=== PATIENT | male | born 1955 | race Caucasian/White ===

== ENCOUNTER 2017-07-17 00:56 | Inpatient (IN) | payer MEDICARE, MEDICAID ==
[2017-07-17] VITALS (11 sets, daily range): BP systolic 77–128; BP diastolic 37–70
[~2017-07-17] VITALS: Ht 185.4 cm; Wt 110.8 kg
[~2017-07-17 00:56] MED LIST: ATOR20TA86 PO; GABA-531 PO; GLIP5 PO; HUMLIS7525 SQ; INS7030 SQ; METF500T4 PO; METO-558 PO; OMEP20 PO; OXYB5XL PO; PIOG45TA4 PO; SILO8CAP PO; VALS160T2 PO
[2017-07-17] MEDS ORDERED: INSU100V12 SQ (01:17)
[2017-07-17] MEDS ORDERED: EMPA10TA PO (01:17)
[2017-07-17 01:28] LABS: GLUCOSE,POINT OF CARE 147 MG/DL (70-110)
[2017-07-17 01:45] LABS: BASOPHILS # (AUTO) 0.05 K/uL (0.00-0.20); BASOPHILS % (AUTO) 0.4 % (0.0-2.0); EOSINOPHILS % (AUTO) 0.74 % (1.0-6.0); HEMATOCRIT 51.7 % (41-53); HEMOGLOBIN 17.2 g/dL (13.5-17.5); LYMPHOCYTES % (AUTO) 21.4 % (22.0-44.0); MEAN CORPUSCULAR HEMOGLOBIN 30.3 pg (26.0-34.0); MEAN CORPUSCULAR HGB CONC 33.3 G/dL (31.0-37.0); MEAN CORPUSCULAR VOLUME 91 fL (80-100); MONOCYTES # (AUTO) 1.2 K/uL (0.1-1.0); MONOCYTES % (AUTO) 8.3 % (2.0-9.0); NEUTROPHILS # (AUTO) 9.8 K/uL (1.8-7.7); NEUTROPHILS % (AUTO) 69.3 % (40.0-70.0); PLATELET COUNT (AUTO) 200 K/uL (150-450); RED BLOOD CELL COUNT(AUTO) 5.67 MIL/uL (4.50-5.90)
[2017-07-17 01:56] LABS: CALCIUM, TOTAL 9.4 mg/dL (8.8-10.5); CREATININE 1.42 mg/dL (0.60-1.30)
[2017-07-17 02:02] LABS: ALBUMIN 4.5 g/dL (3.4-5.0); BILIRUBIN,TOTAL 0.7 mg/dL (0.1-1.0); TOTAL PROTEIN, SERUM 7.9 g/dL (6.4-8.2)
[2017-07-17] MEDS ORDERED: ASPIRIN 325 MG TABLET PO ONE (03:15)
[2017-07-17] MEDS ORDERED: NITROGLYCERIN 0.4 MG SUBLINGUAL TABLET #25 SL ONE (03:15)
[2017-07-17] MEDS ORDERED: NITROGLYCERIN 2% (1 GM=INCH) PACKET TP ONE (03:15)
[2017-07-17] MEDS ORDERED: HYDROmorphone 2 MG/ML SYRINGE IVP ONE ×2 (04:15→05:30)
[2017-07-17] MEDS ORDERED: ONDANSETRON HCL 4 MG/2 ML VIAL IVP ONE (04:15)
[2017-07-17] MEDS ORDERED: 0.9% SODIUM CHLORIDE 10 ML SYRINGE IVP PRN (05:30)
[2017-07-17] MEDS ORDERED: ONDANSETRON HCL 4 MG/2 ML VIAL IVP PRN (05:30)
[2017-07-17] MEDS ORDERED: ACETAMINOPHEN 325 MG TABLET PO PRN (05:30)
[2017-07-17] MEDS ORDERED: LORazepam 2 MG/ML VIAL IVP ONE ×2 (06:00→16:15)
[2017-07-17] MEDS ORDERED: GABA-531 PO (08:52)
[2017-07-17] MEDS ORDERED: OXYC10TA89 PO (08:52)
[2017-07-17] MEDS ORDERED: VITAD1000 PO (08:52)
[2017-07-17] MEDS ORDERED: PERCT10 PO (08:52)
[2017-07-17] MEDS ORDERED: FLUT16H NASAL (08:52)
[2017-07-17] MEDS ORDERED: FLUO-191 PO (08:52)
[2017-07-17] MEDS ORDERED: SITA100 PO (08:52)
[2017-07-17] MEDS ORDERED: DEXTROSE 50%-WATER 25 GM/50 ML SYRINGE IVP PRN (10:00)
[2017-07-17] MEDS: ATORVASTATIN CALCIUM 20 MG TABLET PO SCH (10:38)
[2017-07-17] MEDS: CHOLECALCIFEROL (VIT D3) 1,000 UNITS TABLET PO SCH (10:38)
[2017-07-17] MEDS: FLUTICASONE PROPIONATE 50 MCG/SPRAY 16 GM NASAL SPRAY NASAL SCH (10:38)
[2017-07-17] MEDS: OMEPRAZOLE 20 MG CAPSULE PO SCH (10:38)
[2017-07-17] MEDS: GABAPENTIN 300 MG CAPSULE PO SCH ×3 (10:39→21:00)
[2017-07-17] MEDS: OxyCODONE HCL 10 MG ER TABLET PO SCH ×2 (10:44→21:00)
[2017-07-17] MEDS: FLUoxetine HCL 20 MG CAPSULE PO SCH (10:44)
[2017-07-17] MEDS: METOPROLOL SUCCINATE 50 MG ER TABLET PO SCH (10:44)
[2017-07-17] MEDS: VALSARTAN 160 MG TABLET PO SCH (12:07)
[2017-07-17] MEDS: SitaGLIPtin PHOSPHATE 100 MG TABLET PO SCH (12:07)
[2017-07-17] MEDS: INSULIN ASPART 100 UNITS/ML SQ PRN ×3 (12:15→21:42)
[2017-07-17] MEDS ORDERED: SODIUM CHLORIDE 0.9% 1,000 ML IV ONE (13:08)
[2017-07-17] MEDS ORDERED: IOVERSOL 350 MG/ML 150 ML VIAL ONE (13:08)
[2017-07-17] MEDS: MetFORMIN HCL 500 MG TABLET PO SCH (18:35)
[2017-07-17] MEDS ORDERED: SODIUM CHLORIDE 0.9% 250 ML IV ONE (21:00)
[2017-07-17] MEDS: INSULIN DETEMIR 100 UNITS/ML SQ SCH (21:41)
[2017-07-18] VITALS (11 sets, daily range): BP systolic 91–124; BP diastolic 52–74
[2017-07-18] MEDS ORDERED: ACETAMINOPHEN 325 MG TABLET PO PRN (02:00)
[2017-07-18] MEDS: INSULIN ASPART 100 UNITS/ML SQ PRN ×4 (06:27→20:18)
[2017-07-18 07:09] LABS: B-TYPE NATRIURETIC PEPTIDE 28 pg/mL (0-100)
[2017-07-18 07:30] LABS: HEMOGLOBIN A1C 7.9 % (4.5-6.2)
[2017-07-18 07:32] LABS: ANION GAP 13 mmol/L (8-16); CARBON DIOXIDE 23 mmol/L (22-29); CHLORIDE 99 mmol/L (98-107); CREATINE KINASE, TOTAL 42 U/L (39-308); CREATININE 1.43 mg/dL (0.60-1.30); GLOMERULAR FILTR. RATE CALC 50 mL/min (>60); GLUCOSE,RANDOM 286 mg/dL (70-110); POTASSIUM 4.4 mmol/L (3.5-5.1); SODIUM SERUM 135 mmol/L (136-145); UREA NITROGEN, BLOOD 42 mg/dL (7-18)
[2017-07-18 07:49] LABS: GLUCOMETER DEV NAME(LOC) 5S 2N; GLUCOSE,POINT OF CARE 280 MG/DL (70-110)
[2017-07-18 07:49] LABS: GLUCOMETER DEV NAME(LOC) 5S 2N; GLUCOSE,POINT OF CARE 448 MG/DL (70-110)
[2017-07-18 07:49] LABS: GLUCOMETER DEV NAME(LOC) 5S 2N; GLUCOSE,POINT OF CARE 267 MG/DL (70-110)
[2017-07-18] MEDS: MetFORMIN HCL 500 MG TABLET PO SCH (07:59)
[2017-07-18] MEDS: CHOLECALCIFEROL (VIT D3) 1,000 UNITS TABLET PO SCH (07:59)
[2017-07-18] MEDS: GABAPENTIN 300 MG CAPSULE PO SCH ×3 (07:59→20:15)
[2017-07-18] MEDS: ATORVASTATIN CALCIUM 20 MG TABLET PO SCH (08:00)
[2017-07-18] MEDS: OMEPRAZOLE 20 MG CAPSULE PO SCH (08:00)
[2017-07-18] MEDS: TAMSULOSIN HCL 0.4 MG CAPSULE PO SCH (08:00)
[2017-07-18] MEDS: FLUoxetine HCL 20 MG CAPSULE PO SCH (08:00)
[2017-07-18] MEDS: FLUTICASONE PROPIONATE 50 MCG/SPRAY 16 GM NASAL SPRAY NASAL SCH (08:01)
[2017-07-18] MEDS: OxyCODONE HCL/ACETAMINOPHEN 10-325 MG TABLET PO PRN ×2 (08:02→20:14)
[2017-07-18] MEDS: VALSARTAN 160 MG TABLET PO SCH (09:00)
[2017-07-18] MEDS: METOPROLOL SUCCINATE 50 MG ER TABLET PO SCH (09:00)
[2017-07-18] MEDS: SitaGLIPtin PHOSPHATE 100 MG TABLET PO SCH (09:43)
[2017-07-18] MEDS ORDERED: INFLUENZA VIRUS VACCINE QVS 2017-18 (3YR+)/PF 60 MCG/0.5 ML SYRINGE IM ONE (12:30)
[2017-07-18] MEDS ORDERED: PNEUMOCOCCAL VACCINE POLYVALENT 0.5 ML VIAL [PPSV23] IM ONE (12:30)
[2017-07-18] MEDS: OxyCODONE HCL 10 MG ER TABLET PO SCH ×2 (13:18→22:30)
[2017-07-18] MEDS ORDERED: IOVERSOL 350 MG/ML 150 ML VIAL ONE (15:50)
[2017-07-18] MEDS ORDERED: LORazepam 2 MG/ML VIAL IVP ONE (16:00)
[2017-07-18 19:49] LABS: GLUCOMETER DEV NAME(LOC) 5S 1L; GLUCOSE,POINT OF CARE 274 MG/DL (70-110)
[2017-07-18] MEDS: INSULIN DETEMIR 100 UNITS/ML SQ SCH (20:17)
[2017-07-19] VITALS (9 sets, daily range): BP systolic 111–129; BP diastolic 58–80
[2017-07-19] MEDS: OxyCODONE HCL/ACETAMINOPHEN 10-325 MG TABLET PO PRN ×5 (00:05→22:35)
[2017-07-19 07:56] LABS: GLUCOMETER DEV NAME(LOC) 5S 2N; GLUCOSE,POINT OF CARE 297 MG/DL (70-110)
[2017-07-19 07:57] LABS: GLUCOMETER DEV NAME(LOC) 5S 2N; GLUCOSE,POINT OF CARE 260 MG/DL (70-110)
[2017-07-19 08:06] LABS: GLUCOMETER DEV NAME(LOC) 5S 2N; GLUCOSE,POINT OF CARE 323 MG/DL (70-110)
[2017-07-19 08:07] LABS: GLUCOMETER DEV NAME(LOC) 5S 2N; GLUCOSE,POINT OF CARE 261 MG/DL (70-110)
[2017-07-19 08:20] LABS: BASOPHILS # (AUTO) 0.06 K/uL (0.00-0.20); BASOPHILS % (AUTO) 0.7 % (0.0-2.0); EOSINOPHILS # (AUTO) 0.18 K/uL (0.00-0.70); EOSINOPHILS % (AUTO) 2.13 % (1.0-6.0); HEMATOCRIT 46.9 % (41-53); HEMOGLOBIN 16.1 g/dL (13.5-17.5); LYMPHOCYTES # (AUTO) 2.6 K/uL (1.0-4.8); LYMPHOCYTES % (AUTO) 31.2 % (22.0-44.0); MEAN CORPUSCULAR HEMOGLOBIN 30.7 pg (26.0-34.0); MEAN CORPUSCULAR HGB CONC 34.3 G/dL (31.0-37.0); MEAN CORPUSCULAR VOLUME 89 fL (80-100); MONOCYTES # (AUTO) 0.8 K/uL (0.1-1.0); MONOCYTES % (AUTO) 9.4 % (2.0-9.0); NEUTROPHILS # (AUTO) 4.8 K/uL (1.8-7.7); NEUTROPHILS % (AUTO) 56.7 % (40.0-70.0); PLATELET COUNT (AUTO) 144 K/uL (150-450); RED BLOOD CELL COUNT(AUTO) 5.24 MIL/uL (4.50-5.90); RED CELL DISTRIBUTION WIDTH 12.8 % (11.5-14.5)
[2017-07-19 08:46] LABS: PROTHROMBIN TIME 10.4 SEC (9.4-11.6)
[2017-07-19 08:48] LABS: ANION GAP 7 mmol/L (8-16); CALCIUM, TOTAL 9.3 mg/dL (8.8-10.5); CARBON DIOXIDE 28 mmol/L (22-29); CHLORIDE 102 mmol/L (98-107); CREATININE 0.91 mg/dL (0.60-1.30); GLOMERULAR FILTR. RATE CALC > 60 mL/min (>60); GLUCOSE,RANDOM 234 mg/dL (70-110); POTASSIUM 4.4 mmol/L (3.5-5.1); SODIUM SERUM 137 mmol/L (136-145); UREA NITROGEN, BLOOD 32 mg/dL (7-18)
[2017-07-19] MEDS: FLUTICASONE PROPIONATE 50 MCG/SPRAY 16 GM NASAL SPRAY NASAL SCH (08:59)
[2017-07-19] MEDS: METOPROLOL SUCCINATE 50 MG ER TABLET PO SCH (09:00)
[2017-07-19] MEDS ORDERED: SESTAMIBI TC99M/UD ISOTOPE 1 EA INJ INJ ONE ×2 (09:50→10:50)
[2017-07-19] MEDS: VALSARTAN 160 MG TABLET PO SCH (10:24)
[2017-07-19] MEDS: CHOLECALCIFEROL (VIT D3) 1,000 UNITS TABLET PO SCH (10:24)
[2017-07-19] MEDS: SitaGLIPtin PHOSPHATE 100 MG TABLET PO SCH (10:24)
[2017-07-19] MEDS: OMEPRAZOLE 20 MG CAPSULE PO SCH (10:24)
[2017-07-19] MEDS: ATORVASTATIN CALCIUM 20 MG TABLET PO SCH (10:24)
[2017-07-19] MEDS: TAMSULOSIN HCL 0.4 MG CAPSULE PO SCH (10:25)
[2017-07-19] MEDS: GABAPENTIN 300 MG CAPSULE PO SCH ×3 (10:27→22:34)
[2017-07-19] MEDS ORDERED: REGADENOSON 0.4 MG/5 ML PF SYRINGE IVP ONE ×2 (10:47→16:29)
[2017-07-19] MEDS ORDERED: DEXTROSE 50%-WATER 25 GM/50 ML SYRINGE IVP PRN (12:00)
[2017-07-19] MEDS: OxyCODONE HCL 10 MG ER TABLET PO SCH ×2 (12:37→23:59)
[2017-07-19] MEDS: FLUoxetine HCL 20 MG CAPSULE PO SCH (12:37)
[2017-07-19] MEDS: INSULIN ASPART 100 UNITS/ML SQ PRN ×2 (12:42→17:55)
[2017-07-19] MEDS: INSULIN DETEMIR 100 UNITS/ML SQ SCH (16:58)
[2017-07-19] MEDS ORDERED: INSULIN DETEMIR 100 UNITS/ML SQ SCH (17:30)
[2017-07-20 00:23] VITALS: BP 123/71
[2017-07-20 05:44] VITALS: BP 128/69
[2017-07-20 06:18] LABS: BASOPHILS % (AUTO) 0.6 % (0.0-2.0); EOSINOPHILS % (AUTO) 2.4 % (1.0-6.0); HEMATOCRIT 45.4 % (41-53); HEMOGLOBIN 15.5 g/dL (13.5-17.5); LYMPHOCYTES # (AUTO) 2.9 K/uL (1.0-4.8); LYMPHOCYTES % (AUTO) 34.4 % (22.0-44.0); MEAN CORPUSCULAR HEMOGLOBIN 30.9 pg (26.0-34.0); MEAN CORPUSCULAR HGB CONC 34.1 G/dL (31.0-37.0); MEAN CORPUSCULAR VOLUME 91 fL (80-100); MONOCYTES # (AUTO) 0.7 K/uL (0.1-1.0); MONOCYTES % (AUTO) 8.6 % (2.0-9.0); NEUTROPHILS # (AUTO) 4.5 K/uL (1.8-7.7); PLATELET COUNT (AUTO) 153 K/uL (150-450); RED BLOOD CELL COUNT(AUTO) 5.01 MIL/uL (4.50-5.90); RED CELL DISTRIBUTION WIDTH 12.6 % (11.5-14.5)
[2017-07-20 06:27] LABS: PROTHROMBIN TIME 10.3 SEC (9.4-11.6)
[2017-07-20] MEDS: INSULIN DETEMIR 100 UNITS/ML SQ SCH ×2 (06:30→16:48)
[2017-07-20 06:31] LABS: ANION GAP 7 mmol/L (8-16); CALCIUM, TOTAL 8.9 mg/dL (8.8-10.5); CARBON DIOXIDE 27 mmol/L (22-29); CHLORIDE 101 mmol/L (98-107); CREATININE 0.91 mg/dL (0.60-1.30); GLOMERULAR FILTR. RATE CALC > 60 mL/min (>60); GLUCOSE,RANDOM 231 mg/dL (70-110); POTASSIUM 4.5 mmol/L (3.5-5.1); SODIUM SERUM 135 mmol/L (136-145); UREA NITROGEN, BLOOD 29 mg/dL (7-18)
[2017-07-20 07:40] VITALS: BP 121/72
[2017-07-20] MEDS ORDERED: DiphenhydrAMINE HCL 50 MG/ML VIAL IVP ONE (08:00)
[2017-07-20] MEDS: GABAPENTIN 300 MG CAPSULE PO SCH ×3 (09:00→20:08)
[2017-07-20] MEDS: OxyCODONE HCL 10 MG ER TABLET PO SCH ×2 (09:00→21:00)
[2017-07-20] MEDS: OxyCODONE HCL/ACETAMINOPHEN 10-325 MG TABLET PO PRN ×3 (10:47→20:08)
[2017-07-20] MEDS: FLUTICASONE PROPIONATE 50 MCG/SPRAY 16 GM NASAL SPRAY NASAL SCH (10:47)
[2017-07-20 12:17] VITALS: BP 113/63
[2017-07-20] MEDS ORDERED: FentaNYL CITRATE-PF 100 MCG/2 ML VIAL ONE (12:33)
[2017-07-20] MEDS ORDERED: HEPARIN SODIUM,PORCINE 1,000 UNITS/ML 10 ML VIAL ONE (12:34)
[2017-07-20] MEDS ORDERED: VERAPAMIL HCL 2.5 MG/ML 2 ML VIAL ONE (12:34)
[2017-07-20] MEDS ORDERED: MIDAZOLAM HCL 2 MG/2 ML VIAL ONE (12:34)
[2017-07-20] MEDS ORDERED: SODIUM BICARBONATE 50 MEQ/50 ML VIAL ONE (12:35)
[2017-07-20] MEDS ORDERED: LIDOCAINE HCL/PF 1% 30 ML VIAL ONE (12:35)
[2017-07-20] MEDS ORDERED: NITROGLYCERIN 50 MG/D5% WATER 0 ML ONE (12:35)
[2017-07-20] MEDS ORDERED: HEPARIN SODIUM 1000 UNITS/NS 500 ML ONE (12:36)
[2017-07-20] MEDS ORDERED: IOHEXOL 300 MG/ML 150 ML VIAL ONE (12:36)
[2017-07-20] MEDS ORDERED: IOHEXOL 300 MG/ML 100 ML VIAL ONE (12:36)
[2017-07-20] MEDS: SitaGLIPtin PHOSPHATE 100 MG TABLET PO SCH (13:45)
[2017-07-20] MEDS: TAMSULOSIN HCL 0.4 MG CAPSULE PO SCH (13:45)
[2017-07-20] MEDS: CHOLECALCIFEROL (VIT D3) 1,000 UNITS TABLET PO SCH (13:46)
[2017-07-20] MEDS: METOPROLOL SUCCINATE 50 MG ER TABLET PO SCH (13:46)
[2017-07-20] MEDS: VALSARTAN 160 MG TABLET PO SCH (13:46)
[2017-07-20] MEDS: FLUoxetine HCL 20 MG CAPSULE PO SCH (13:46)
[2017-07-20] MEDS: ATORVASTATIN CALCIUM 20 MG TABLET PO SCH (13:46)
[2017-07-20] MEDS: OMEPRAZOLE 20 MG CAPSULE PO SCH (13:46)
[2017-07-20] MEDS: INSULIN ASPART 100 UNITS/ML SQ PRN ×3 (13:52→21:49)
[2017-07-20] MEDS ORDERED: NITROGLYCERIN 0.4 MG SUBLINGUAL TABLET #25 SL PRN (14:00)
[2017-07-20 15:18] VITALS: BP 116/76
[2017-07-20] MEDS: MetFORMIN HCL 500 MG TABLET PO SCH (16:48)
[2017-07-20] MEDS ORDERED: LIDOCAINE HCL 5% TRANSDERMAL PATCH TD SCH (18:30)
[2017-07-20] MEDS: CYCLOBENZAPRINE HCL 10 MG TABLET PO PRN (18:51)
[2017-07-20 20:09] VITALS: BP 103/58
[2017-07-20] MEDS: LIDOCAINE HCL 5% TRANSDERMAL PATCH TD SCH ×3 (20:09→20:10)
[2017-07-21] VITALS (15 sets, daily range): BP systolic 83–131; BP diastolic 33–79
[2017-07-21] MEDS ORDERED: ASPIRIN 81 MG CHEWABLE TABLET PO SCH (05:00)
[2017-07-21] MEDS: INSULIN DETEMIR 100 UNITS/ML SQ SCH ×2 (05:59→17:51)
[2017-07-21 06:10] LABS: BASOPHILS % (AUTO) 0.5 % (0.0-2.0); EOSINOPHILS % (AUTO) 1.8 % (1.0-6.0); HEMATOCRIT 44.7 % (41-53); HEMOGLOBIN 15.2 g/dL (13.5-17.5); LYMPHOCYTES # (AUTO) 2.8 K/uL (1.0-4.8); LYMPHOCYTES % (AUTO) 31.3 % (22.0-44.0); MEAN CORPUSCULAR HEMOGLOBIN 30.7 pg (26.0-34.0); MEAN CORPUSCULAR HGB CONC 33.9 G/dL (31.0-37.0); MEAN CORPUSCULAR VOLUME 91 fL (80-100); MONOCYTES # (AUTO) 0.9 K/uL (0.1-1.0); MONOCYTES % (AUTO) 9.6 % (2.0-9.0); NEUTROPHILS % (AUTO) 56.8 % (40.0-70.0); PLATELET COUNT (AUTO) 150 K/uL (150-450); RED BLOOD CELL COUNT(AUTO) 4.93 MIL/uL (4.50-5.90); RED CELL DISTRIBUTION WIDTH 12.9 % (11.5-14.5)
[2017-07-21 06:20] LABS: PROTHROMBIN TIME 10.5 SEC (9.4-11.6)
[2017-07-21 06:30] LABS: ANION GAP 5 mmol/L (8-16); CALCIUM, TOTAL 8.8 mg/dL (8.8-10.5); CARBON DIOXIDE 29 mmol/L (22-29); CHLORIDE 101 mmol/L (98-107); CREATINE KINASE, TOTAL 29 U/L (39-308); CREATININE 1.04 mg/dL (0.60-1.30); GLOMERULAR FILTR. RATE CALC > 60 mL/min (>60); GLUCOSE,RANDOM 257 mg/dL (70-110); POTASSIUM 4.2 mmol/L (3.5-5.1); SODIUM SERUM 135 mmol/L (136-145); UREA NITROGEN, BLOOD 31 mg/dL (7-18)
[2017-07-21] MEDS ORDERED: LORazepam 2 MG/ML VIAL IVP ONE (07:30)
[2017-07-21] MEDS: FLUTICASONE PROPIONATE 50 MCG/SPRAY 16 GM NASAL SPRAY NASAL SCH (07:49)
[2017-07-21] MEDS: MetFORMIN HCL 500 MG TABLET PO SCH (08:00)
[2017-07-21] MEDS ORDERED: HEPARIN SODIUM 1000 UNITS/NS 1,000 ML ONE (08:08)
[2017-07-21] MEDS ORDERED: IOHEXOL 300 MG/ML 150 ML VIAL ONE (08:08)
[2017-07-21] MEDS ORDERED: SODIUM BICARBONATE 50 MEQ/50 ML VIAL ONE (08:08)
[2017-07-21] MEDS ORDERED: LIDOCAINE HCL/PF 1% 30 ML VIAL ONE (08:08)
[2017-07-21] MEDS ORDERED: FentaNYL CITRATE-PF 100 MCG/2 ML VIAL ONE (08:42)
[2017-07-21] MEDS ORDERED: VERAPAMIL HCL 2.5 MG/ML 2 ML VIAL ONE (08:42)
[2017-07-21] MEDS ORDERED: NITROGLYCERIN 50 MG/D5% WATER 250 ML ONE (08:42)
[2017-07-21] MEDS ORDERED: MIDAZOLAM HCL 2 MG/2 ML VIAL ONE ×2 (08:42→09:48)
[2017-07-21] MEDS: METOPROLOL SUCCINATE 50 MG ER TABLET PO SCH (09:00)
[2017-07-21] MEDS ORDERED: INSULIN DETEMIR 100 UNITS/ML SQ SCH (09:00)
[2017-07-21] MEDS: OxyCODONE HCL 10 MG ER TABLET PO SCH ×2 (09:00→21:30)
[2017-07-21] MEDS: VALSARTAN 160 MG TABLET PO SCH (09:00)
[2017-07-21] MEDS: GABAPENTIN 300 MG CAPSULE PO SCH ×3 (09:00→21:18)
[2017-07-21] MEDS: OMEPRAZOLE 20 MG CAPSULE PO SCH (09:00)
[2017-07-21] MEDS ORDERED: HEPARIN SODIUM,PORCINE 1,000 UNITS/ML 10 ML VIAL ONE (09:05)
[2017-07-21] MEDS ORDERED: SODIUM CHLORIDE 0.9% 500 ML IV ONE (09:20)
[2017-07-21] MEDS ORDERED: HEPARIN SODIUM 1000 UNITS/NS 1,000 ML IARTER ONE (09:20)
[2017-07-21] MEDS ORDERED: IOHEXOL 300 MG/ML 150 ML VIAL IARTER ONE (09:30)
[2017-07-21] MEDS ORDERED: HEPARIN SODIUM,PORCINE 5,000 UNITS/ML VIAL IVP ONE ×2 (09:30→10:15)
[2017-07-21] MEDS ORDERED: NITROGLYCERIN/D5W 50 MG/250 ML IV BOTTLE IARTER ONE (09:30)
[2017-07-21] MEDS ORDERED: MIDAZOLAM HCL 2 MG/2 ML VIAL IVP ONE ×3 (09:30→10:00)
[2017-07-21] MEDS ORDERED: VERAPAMIL HCL 2.5 MG/ML 2 ML VIAL IARTER ONE (09:30)
[2017-07-21] MEDS ORDERED: LIDOCAINE 1% 30 ML/SOD BICARB 8.4% 4 ML SQ ONE (09:30)
[2017-07-21] MEDS ORDERED: FentaNYL CITRATE-PF 100 MCG/2 ML VIAL IVP ONE ×3 (09:30→10:00)
[2017-07-21] MEDS ORDERED: IOHEXOL 300 MG/ML 50 ML VIAL ONE (09:33)
[2017-07-21] MEDS ORDERED: HEPARIN SODIUM 1000 UNITS/NS 500 ML IARTER ONE (09:34)
[2017-07-21] MEDS ORDERED: HEPARIN SODIUM 1000 UNITS/NS 500 ML ONE (09:41)
[2017-07-21] MEDS ORDERED: IOHEXOL 300 MG/ML 50 ML VIAL IARTER ONE (09:45)
[2017-07-21] MEDS ORDERED: IOHEXOL 300 MG/ML 100 ML VIAL ONE (10:08)
[2017-07-21] MEDS ORDERED: IOHEXOL 300 MG/ML 100 ML VIAL IARTER ONE (10:30)
[2017-07-21] MEDS ORDERED: TICAGRELOR 90 MG TABLET ONE (10:34)
[2017-07-21] MEDS ORDERED: ASPIRIN 81 MG CHEWABLE TABLET ONE (10:44)
[2017-07-21] MEDS ORDERED: TICAGRELOR 90 MG TABLET PO ONE (10:45)
[2017-07-21] MEDS ORDERED: ASPIRIN 81 MG CHEWABLE TABLET PO ONE (10:45)
[2017-07-21] MEDS: -LIDODERM PATCH NOTE- MISC SCH (10:51)
[2017-07-21 11:43] LABS: GLUCOSE,POINT OF CARE 289 MG/DL (70-110)
[2017-07-21] MEDS: SODIUM CHLORIDE 0.9% 1,000 ML IV SCH ×2 (11:52→18:55)
[2017-07-21] MEDS: OxyCODONE HCL/ACETAMINOPHEN 10-325 MG TABLET PO PRN (11:52)
[2017-07-21] MEDS: CHOLECALCIFEROL (VIT D3) 1,000 UNITS TABLET PO SCH (11:52)
[2017-07-21] MEDS: FLUoxetine HCL 20 MG CAPSULE PO SCH (11:53)
[2017-07-21] MEDS: TAMSULOSIN HCL 0.4 MG CAPSULE PO SCH (11:53)
[2017-07-21] MEDS: SitaGLIPtin PHOSPHATE 100 MG TABLET PO SCH (11:54)
[2017-07-21] MEDS: INSULIN ASPART 100 UNITS/ML SQ PRN ×3 (12:12→21:21)
[2017-07-21] MEDS: CYCLOBENZAPRINE HCL 10 MG TABLET PO PRN (13:02)
[2017-07-21] MEDS: ATORVASTATIN CALCIUM 40 MG TABLET PO SCH (13:14)
[2017-07-21 18:08] LABS: GLUCOSE,POINT OF CARE 350 MG/DL (70-110)
[2017-07-21 19:57] LABS: GLUCOMETER DEV NAME(LOC) 5S 1L; GLUCOSE,POINT OF CARE 310 MG/DL (70-110)
[2017-07-21 19:57] LABS: GLUCOMETER DEV NAME(LOC) 5S 2N; GLUCOSE,POINT OF CARE 423 MG/DL (70-110)
[2017-07-21 19:58] LABS: GLUCOMETER DEV NAME(LOC) 5S 2N; GLUCOSE,POINT OF CARE 267 MG/DL (70-110)
[2017-07-21 19:58] LABS: GLUCOMETER DEV NAME(LOC) 5S 2N; GLUCOSE,POINT OF CARE 232 MG/DL (70-110)
[2017-07-21 19:58] LABS: GLUCOMETER DEV NAME(LOC) 5S 1L; GLUCOSE,POINT OF CARE 264 MG/DL (70-110)
[2017-07-21 19:58] LABS: GLUCOMETER DEV NAME(LOC) 5S 2N; GLUCOSE,POINT OF CARE 293 MG/DL (70-110)
[2017-07-21 19:58] LABS: GLUCOMETER DEV NAME(LOC) 5S 2N; GLUCOSE,POINT OF CARE 325 MG/DL (70-110)
[2017-07-21] MEDS: LIDOCAINE HCL 5% TRANSDERMAL PATCH TD SCH ×3 (21:18→21:20)
[2017-07-21] MEDS: TICAGRELOR 90 MG TABLET PO SCH (21:30)
[2017-07-22] VITALS: BP 109/69
[2017-07-22 04:00] VITALS: BP 113/68
[2017-07-22] MEDS: SODIUM CHLORIDE 0.9% 1,000 ML IV SCH ×4 (04:06→22:24)
[2017-07-22] MEDS: CYCLOBENZAPRINE HCL 10 MG TABLET PO PRN ×2 (05:40→15:12)
[2017-07-22] MEDS: INSULIN ASPART 100 UNITS/ML SQ PRN ×4 (05:48→20:40)
[2017-07-22] MEDS: INSULIN DETEMIR 100 UNITS/ML SQ SCH ×2 (05:49→17:36)
[2017-07-22 06:37] LABS: GLUCOSE,POINT OF CARE 230 MG/DL (70-110)
[2017-07-22 06:37] LABS: GLUCOSE,POINT OF CARE 313 MG/DL (70-110)
[2017-07-22] MEDS: OxyCODONE HCL 10 MG ER TABLET PO SCH ×2 (07:56→20:32)
[2017-07-22] MEDS: TAMSULOSIN HCL 0.4 MG CAPSULE PO SCH (07:57)
[2017-07-22] MEDS: CHOLECALCIFEROL (VIT D3) 1,000 UNITS TABLET PO SCH (07:57)
[2017-07-22] MEDS: GABAPENTIN 300 MG CAPSULE PO SCH ×3 (07:57→20:03)
[2017-07-22] MEDS: ASPIRIN 81 MG CHEWABLE TABLET PO SCH (07:57)
[2017-07-22] MEDS: FLUTICASONE PROPIONATE 50 MCG/SPRAY 16 GM NASAL SPRAY NASAL SCH (07:58)
[2017-07-22] MEDS: TICAGRELOR 90 MG TABLET PO SCH ×2 (07:59→21:07)
[2017-07-22] MEDS: SitaGLIPtin PHOSPHATE 100 MG TABLET PO SCH (07:59)
[2017-07-22] MEDS: ATORVASTATIN CALCIUM 40 MG TABLET PO SCH (07:59)
[2017-07-22 08:00] VITALS: BP 124/82
[2017-07-22] MEDS: METOPROLOL SUCCINATE 50 MG ER TABLET PO SCH (08:00)
[2017-07-22] MEDS: FLUoxetine HCL 20 MG CAPSULE PO SCH (08:00)
[2017-07-22] MEDS: OMEPRAZOLE 20 MG CAPSULE PO SCH (08:00)
[2017-07-22] MEDS: VALSARTAN 160 MG TABLET PO SCH (08:00)
[2017-07-22] MEDS: -LIDODERM PATCH NOTE- MISC SCH (08:37)
[2017-07-22] MEDS: OxyCODONE HCL/ACETAMINOPHEN 10-325 MG TABLET PO PRN ×2 (10:39→20:03)
[2017-07-22 12:00] VITALS: BP 102/59
[2017-07-22 13:35] LABS: GLUCOSE,POINT OF CARE 239 MG/DL (70-110)
[2017-07-22 18:12] VITALS: BP 118/68
[2017-07-22 20:02] VITALS: BP 124/71
[2017-07-22] MEDS: LIDOCAINE HCL 5% TRANSDERMAL PATCH TD SCH ×3 (21:08→21:12)
[2017-07-23 00:26] VITALS: BP 118/74
[2017-07-23 00:38] LABS: GLUCOMETER DEV NAME(LOC) 5S 1L; GLUCOSE,POINT OF CARE 256 MG/DL (70-110)
[2017-07-23 00:38] LABS: GLUCOMETER DEV NAME(LOC) 5S 1L; GLUCOSE,POINT OF CARE 288 MG/DL (70-110)
[2017-07-23] MEDS: OxyCODONE HCL/ACETAMINOPHEN 10-325 MG TABLET PO PRN (00:41)
[2017-07-23 04:32] VITALS: BP 126/73
[2017-07-23] MEDS: INSULIN DETEMIR 100 UNITS/ML SQ SCH ×2 (05:43→17:57)
[2017-07-23] MEDS: INSULIN ASPART 100 UNITS/ML SQ PRN ×3 (05:47→17:55)
[2017-07-23] MEDS: SODIUM CHLORIDE 0.9% 1,000 ML IV SCH ×2 (06:51→12:08)
[2017-07-23 07:25] VITALS: BP 134/69
[2017-07-23] MEDS: OMEPRAZOLE 20 MG CAPSULE PO SCH (08:32)
[2017-07-23] MEDS: ATORVASTATIN CALCIUM 40 MG TABLET PO SCH (08:34)
[2017-07-23] MEDS: GABAPENTIN 300 MG CAPSULE PO SCH ×2 (08:34→16:16)
[2017-07-23] MEDS: VALSARTAN 160 MG TABLET PO SCH (08:35)
[2017-07-23] MEDS: ASPIRIN 81 MG CHEWABLE TABLET PO SCH (08:35)
[2017-07-23] MEDS: TICAGRELOR 90 MG TABLET PO SCH (08:35)
[2017-07-23] MEDS: TAMSULOSIN HCL 0.4 MG CAPSULE PO SCH (08:35)
[2017-07-23] MEDS: CHOLECALCIFEROL (VIT D3) 1,000 UNITS TABLET PO SCH (08:35)
[2017-07-23] MEDS: MetFORMIN HCL 500 MG TABLET PO SCH ×2 (08:35→17:58)
[2017-07-23] MEDS: FLUTICASONE PROPIONATE 50 MCG/SPRAY 16 GM NASAL SPRAY NASAL SCH (08:35)
[2017-07-23] MEDS: OxyCODONE HCL 10 MG ER TABLET PO SCH (08:35)
[2017-07-23] MEDS: METOPROLOL SUCCINATE 50 MG ER TABLET PO SCH (08:36)
[2017-07-23] MEDS: FLUoxetine HCL 20 MG CAPSULE PO SCH (08:37)
[2017-07-23] MEDS: SitaGLIPtin PHOSPHATE 100 MG TABLET PO SCH (08:37)
[2017-07-23] MEDS: -LIDODERM PATCH NOTE- MISC SCH (08:47)
[2017-07-23 11:07] VITALS: BP 116/69
[2017-07-23 15:16] VITALS: BP 124/68
[2017-07-23] MEDS: CYCLOBENZAPRINE HCL 10 MG TABLET PO PRN (16:16)
[2017-07-24 19:43] LABS: GLUCOMETER DEV NAME(LOC) 5S 1L; GLUCOSE,POINT OF CARE 270 MG/DL (70-110)
[2017-07-24 19:43] LABS: GLUCOMETER DEV NAME(LOC) 5S 1L; GLUCOSE,POINT OF CARE 262 MG/DL (70-110)
[2017-07-24 19:43] LABS: GLUCOMETER DEV NAME(LOC) 5S 1L; GLUCOSE,POINT OF CARE 258 MG/DL (70-110)
== END 2017-07-23 18:40 | DRG 247 ==
LOC: EMS 00:58 → 5S 04:45 → ICU 07-21 10:40 → 5S 07-22 16:25
PROVIDERS: ADMIT Family Medicine; ATTEND Internal Medicine
PROC: 027034Z Dilation of Coronary Artery, One Artery with Drug-eluting Intraluminal Device, Percutaneous Approach (ICD-10-PCS; principal; 2017-07-21)
PROC: 4A023N7 Measurement of Cardiac Sampling and Pressure, Left Heart, Percutaneous Approach (ICD-10-PCS; 2017-07-21)
PROC: B2111ZZ Fluoroscopy of Multiple Coronary Arteries using Low Osmolar Contrast (ICD-10-PCS; 2017-07-21)
PROC: B2151ZZ Fluoroscopy of Left Heart using Low Osmolar Contrast (ICD-10-PCS; 2017-07-21)
DX: I20.9 Angina pectoris, unspecified (principal); E11.40 Type 2 diabetes mellitus with diabetic neuropathy, unspecified; E11.22 Type 2 diabetes mellitus with diabetic chronic kidney disease; N17.9 Acute kidney failure, unspecified; N18.3 Chronic kidney disease, stage 3 (moderate); M48.04 Spinal stenosis, thoracic region; R13.10 Dysphagia, unspecified; E11.65 Type 2 diabetes mellitus with hyperglycemia; I12.9 Hypertensive chronic kidney disease with stage 1 through stage 4 chronic kidney disease, or unspecified chronic kidney disease; I11.9 Hypertensive heart disease without heart failure; E78.00 Pure hypercholesterolemia, unspecified; G89.4 Chronic pain syndrome; K21.9 Gastro-esophageal reflux disease without esophagitis; F41.9 Anxiety disorder, unspecified; N40.0 Benign prostatic hyperplasia without lower urinary tract symptoms; Z88.5 Allergy status to narcotic agent; Z96.89 Presence of other specified functional implants; Z87.891 Personal history of nicotine dependence; Z79.899 Other long term (current) drug therapy; R04.0 Epistaxis; M51.9 Unspecified thoracic, thoracolumbar and lumbosacral intervertebral disc disorder; J44.9 Chronic obstructive pulmonary disease, unspecified; E78.5 Hyperlipidemia, unspecified; H53.2 Diplopia; Z28.21 Immunization not carried out because of patient refusal
CPT/HCPCS: 71260; 72193; 74160; 78452; 82962; 83036; 83735; 86001; 87081; 90471; 92920; 92928; 93005; 93017; 93306; 96374; 96375; 97162; 97166; 99285; A9500; J1170; J1644; J2060; J2250; J2405; J2785; J3010; J3490; J7030; Q9967

== ENCOUNTER → 2017-10-11 | Outpatient (CLI) | payer MEDICARE, MEDICAID ==
[~2017-10-11] MED LIST changes: +EMPA10TA PO; +FLUO-191 PO; +FLUT16H NASAL; -GLIP5 PO; -INS7030 SQ; +INSU100V12 SQ; -OXYB5XL PO; +OXYC10TA89 PO; +PERCT10 PO; -PIOG45TA4 PO; +SITA100 PO; +VITAD1000 PO
[2017-10-11 10:58] LABS: BASOPHILS # (AUTO) 0.05 K/uL (0.00-0.20); BASOPHILS % (AUTO) 0.6 % (0.0-2.0); EOSINOPHILS # (AUTO) 0.31 K/uL (0.00-0.70); EOSINOPHILS % (AUTO) 3.41 % (1.0-6.0); HEMATOCRIT 47.1 % (41-53); HEMOGLOBIN 15.7 g/dL (13.5-17.5); LYMPHOCYTES # (AUTO) 2.2 K/uL (1.0-4.8); LYMPHOCYTES % (AUTO) 24.5 % (22.0-44.0); MEAN CORPUSCULAR HEMOGLOBIN 30.3 pg (26.0-34.0); MEAN CORPUSCULAR HGB CONC 33.3 G/dL (31.0-37.0); MEAN CORPUSCULAR VOLUME 91 fL (80-100); MONOCYTES # (AUTO) 0.8 K/uL (0.1-1.0); MONOCYTES % (AUTO) 9.3 % (2.0-9.0); NEUTROPHILS # (AUTO) 5.7 K/uL (1.8-7.7); NEUTROPHILS % (AUTO) 62.3 % (40.0-70.0); PLATELET COUNT (AUTO) 174 K/uL (150-450); RED BLOOD CELL COUNT(AUTO) 5.17 MIL/uL (4.50-5.90); RED CELL DISTRIBUTION WIDTH 13.8 % (11.5-14.5)
[2017-10-11 11:10] LABS: ANION GAP 10 mmol/L (8-16); CALCIUM, TOTAL 9.6 mg/dL (8.8-10.5); CARBON DIOXIDE 27 mmol/L (22-29); CHLORIDE 99 mmol/L (98-107); CREATININE 1.15 mg/dL (0.60-1.30); GLOMERULAR FILTR. RATE CALC > 60 mL/min (>60); GLUCOSE,RANDOM 211 mg/dL (70-110); SODIUM SERUM 136 mmol/L (136-145); UREA NITROGEN, BLOOD 18 mg/dL (7-18)
[2017-10-11 11:32] LABS: PROSTATE SPECIFIC ANTIGEN 2.58 ng/mL (0.00-4.00)
== END | disposition home or self-care (01) ==
LOC: LABPV 09:11
PROVIDERS: ATTEND Internal Medicine Interventional Cardiology
DX: I25.10 Atherosclerotic heart disease of native coronary artery without angina pectoris (principal); I10 Essential (primary) hypertension; N40.0 Benign prostatic hyperplasia without lower urinary tract symptoms
CPT/HCPCS: 84153

== ENCOUNTER → 2017-10-14 | Outpatient (CLI) | payer MEDICARE, MEDICAID ==
[~2017-10-14] MED LIST changes: +IOVERSOL 320 MG/ML 100 ML VIAL ONE
== END | disposition home or self-care (01) ==
LOC: RADMN 08:42
PROVIDERS: ATTEND Internal Medicine Interventional Cardiology
DX: N40.1 Benign prostatic hyperplasia with lower urinary tract symptoms (principal); K76.0 Fatty (change of) liver, not elsewhere classified; R07.9 Chest pain, unspecified; I70.0 Atherosclerosis of aorta; Z98.890 Other specified postprocedural states
CPT/HCPCS: 71260; 72193; 74160; Q9967

== ENCOUNTER 2017-11-14 02:32 | Emergency (ER) | payer MEDICARE, MEDICAID ==
[~2017-11-14] VITALS: Ht 185.4 cm; Wt 110.0 kg
[~2017-11-14 02:32] MED LIST changes: -IOVERSOL 320 MG/ML 100 ML VIAL ONE
[2017-11-14 02:48] LABS: GLUCOSE,POINT OF CARE 337 MG/DL (70-110)
[2017-11-14] MEDS ORDERED: SODIUM CHLORIDE 0.9% 1,000 ML IV ONE (03:15)
[2017-11-14 03:36] LABS: BASOPHILS % (AUTO) 0.5 % (0.0-2.0); EOSINOPHILS % (AUTO) 2.2 % (1.0-6.0); HEMATOCRIT 45.6 % (41-53); HEMOGLOBIN 15.7 g/dL (13.5-17.5); LYMPHOCYTES # (AUTO) 1.7 K/uL (1.0-4.8); LYMPHOCYTES % (AUTO) 17.7 % (22.0-44.0); MEAN CORPUSCULAR HEMOGLOBIN 30.9 pg (26.0-34.0); MEAN CORPUSCULAR HGB CONC 34.5 G/dL (31.0-37.0); MEAN CORPUSCULAR VOLUME 90 fL (80-100); MONOCYTES % (AUTO) 10.7 % (2.0-9.0); NEUTROPHILS # (AUTO) 6.7 K/uL (1.8-7.7); NEUTROPHILS % (AUTO) 68.9 % (40.0-70.0); PLATELET COUNT (AUTO) 173 K/uL (150-450); RED BLOOD CELL COUNT(AUTO) 5.09 MIL/uL (4.50-5.90); RED CELL DISTRIBUTION WIDTH 13.9 % (11.5-14.5)
[2017-11-14 03:46] LABS: ANION GAP 9 mmol/L (8-16); CARBON DIOXIDE 25 mmol/L (22-29); CHLORIDE 102 mmol/L (98-107); CREATININE 0.89 mg/dL (0.60-1.30); GLOMERULAR FILTR. RATE CALC > 60 mL/min (>60); GLUCOSE,RANDOM 334 mg/dL (70-110); SODIUM SERUM 136 mmol/L (136-145); UREA NITROGEN, BLOOD 20 mg/dL (7-18)
[2017-11-14 03:53] LABS: ALANINE AMINOTRANSFERASE 31 U/L (12-78); ALBUMIN 3.6 g/dL (3.4-5.0); ALKALINE PHOSPHATASE 67 U/L (46-116); ASPARTATE AMINOTRANSFERASE 14 U/L (15-37); BILIRUBIN,TOTAL 0.3 mg/dL (0.1-1.0); TOTAL PROTEIN, SERUM 7.1 g/dL (6.4-8.2)
[2017-11-14 04:14] LABS: APPEARANCE,URINE CLEAR (CLEAR); BILIRUBIN,URINE NEGATIVE (NEGATIVE); GLUCOSE, URINE (UA) >=1000 mg/dL (NEGATIVE); KETONES,URINE NEGATIVE (NEGATIVE); LEUKOCYTE ESTERASE ,URINE NEGATIVE (NEGATIVE); NITRATE,URINE NEGATIVE (NEGATIVE); OCCULT BLOOD,URINE NEGATIVE (NEGATIVE); PROTEIN,URINE NEGATIVE (NEGATIVE); UROBILINOGEN,URINE 0.2 mg/dL (<=1.0)
[2017-11-14 04:18] LABS: AMPHET/METH SCREEN,URINE NEGATIVE (NEGATIVE); BARBITURATE SCREEN, URINE NEGATIVE (NEGATIVE); BENZODIAZEPINES SCREEN,URINE NEGATIVE (NEGATIVE); CANNABINOID SCREEN,URINE NEGATIVE (NEGATIVE); COCAINE SCREEN,URINE NEGATIVE (NEGATIVE); METHADONE SCREEN, URINE NEGATIVE (NEGATIVE); OPIATE SCREEN,URINE NEGATIVE (NEGATIVE)
[2017-11-14 04:19] LABS: PHENCYCLIDINE SCREEN,URINE NEGATIVE (NEGATIVE)
[2017-11-14 04:31] LABS: BACTERIA,URINE None Seen /HPF (None Seen); RBC,URINE None Seen /HPF (0-2); WBC,URINE None Seen /HPF (0-5)
[2017-11-14] MEDS ORDERED: INSULIN REGULAR, HUMAN 100 UNITS/ML IVP ONE (05:00)
[2017-11-14] MEDS ORDERED: KETOROLAC TROMETHAMINE 30 MG/ML VIAL IVP ONE (05:00)
[2017-11-14] MEDS ORDERED: CYCLOBENZAPRINE HCL 10 MG TABLET PO ONE (05:00)
[2017-11-14 06:02] LABS: GLUCOSE,POINT OF CARE 169 MG/DL (70-110)
[2017-11-14 06:33] VITALS: BP 149/81
== END 2017-11-14 07:00 | disposition home or self-care (01) ==
LOC: EMS 02:33
DX: G89.29 Other chronic pain (principal); M54.5 Low back pain; E11.9 Type 2 diabetes mellitus without complications; K21.9 Gastro-esophageal reflux disease without esophagitis; I10 Essential (primary) hypertension; M48.00 Spinal stenosis, site unspecified; Z88.6 Allergy status to analgesic agent; Z79.4 Long term (current) use of insulin; Z79.899 Other long term (current) drug therapy
CPT/HCPCS: 36415; 80053; 80307; 81001; 82962; 84484; 85025; 96374; 96375; 99284; J1815; J1885; J7030

== ENCOUNTER 2017-12-21 02:44 | Emergency (ER) | payer MEDICARE, MEDICAID ==
[~2017-12-21] VITALS: Ht 185.4 cm; Wt 106.8 kg
[2017-12-21 03:10] LABS: GLUCOSE,POINT OF CARE 265 MG/DL (70-110)
[2017-12-21 04:55] VITALS: BP 125/77
[2017-12-21] MEDS ORDERED: LORazepam 2 MG/ML VIAL IM ONE (05:00)
[2017-12-21] MEDS ORDERED: HYDROmorphone 2 MG/ML SYRINGE IM ONE (05:00)
== END 2017-12-21 06:22 | disposition home or self-care (01) ==
LOC: EMS 02:46
DX: M54.5 Low back pain (principal); F41.9 Anxiety disorder, unspecified; G89.29 Other chronic pain; E11.9 Type 2 diabetes mellitus without complications; K21.9 Gastro-esophageal reflux disease without esophagitis; I10 Essential (primary) hypertension; Z88.5 Allergy status to narcotic agent; Z79.4 Long term (current) use of insulin
CPT/HCPCS: 82962; 93005; 96372; 99284; J1170; J2060

== ENCOUNTER 2017-12-27 03:09 | Emergency (ER) | payer MEDICARE, MEDICAID ==
[~2017-12-27] VITALS: Ht 160 cm; Wt 110.8 kg
[2017-12-27] MEDS ORDERED: OXYMETAZOLINE HCL 0.05% 15 ML NASAL SPRAY NASAL ONE (05:00)
[2017-12-27] MEDS ORDERED: LORazepam 1 MG TABLET PO ONE (05:00)
[2017-12-27] MEDS ORDERED: ALBUTEROL SULFATE HFA 90 MCG/PUFF 8 GM INHALER IH ONE (05:00)
[2017-12-27] MEDS ORDERED: KETOROLAC TROMETHAMINE 60 MG/2 ML VIAL IM ONE (05:00)
[2017-12-27 05:20] VITALS: BP 129/77
== END 2017-12-27 05:53 | disposition home or self-care (01) ==
LOC: EMS 03:10
DX: G89.29 Other chronic pain (principal); M54.9 Dorsalgia, unspecified; F41.1 Generalized anxiety disorder; E11.9 Type 2 diabetes mellitus without complications; I10 Essential (primary) hypertension; J31.0 Chronic rhinitis; K21.9 Gastro-esophageal reflux disease without esophagitis; Z79.4 Long term (current) use of insulin; Z88.5 Allergy status to narcotic agent
CPT/HCPCS: 94640; 96372; 99284; J1885; J3535

== ENCOUNTER 2018-02-08 21:42 | Emergency (ER) | payer MEDICARE, MEDICAID ==
[~2018-02-08] VITALS: Ht 185.4 cm; Wt 109.1 kg
[~2018-02-08 21:42] MED LIST changes: -METF500T4 PO; +METF500T6 PO
[2018-02-08 22:23] LABS: GLUCOSE,POINT OF CARE 399 MG/DL (70-110)
[2018-02-09 00:30] VITALS: BP 135/73
[2018-02-09] MEDS ORDERED: KETOROLAC TROMETHAMINE 30 MG/ML VIAL IM ONE (00:45)
== END 2018-02-09 01:01 | disposition home or self-care (01) ==
LOC: EMS 21:43
DX: S63.501A Unspecified sprain of right wrist, initial encounter (principal); E11.9 Type 2 diabetes mellitus without complications; K21.9 Gastro-esophageal reflux disease without esophagitis; I10 Essential (primary) hypertension; Z79.4 Long term (current) use of insulin; Z88.5 Allergy status to narcotic agent; W22.8XXA Striking against or struck by other objects, initial encounter; Y93.89 Activity, other specified; Y92.89 Other specified places as the place of occurrence of the external cause; Y99.8 Other external cause status
CPT/HCPCS: 29125; 73110; 82962; 96372; 99284; J1885